=== PATIENT | female | born 1980 | race Caucasian/White ===

== ENCOUNTER 2022-09-12 22:05 | Inpatient (IN) | payer OTHER ==
[2022-09-12 22:31] VITALS: BMI 46.5
[2022-09-13] MEDS ORDERED: traMADol HCl 50 MG TAB PO PRN ×3 (00:44→16:15)
[2022-09-13] MEDS ORDERED: busPIRone HCl 15 MG TAB PO SCH (01:00)
[2022-09-13] MEDS ORDERED: traMADol HCl 50 MG TAB PO SCH (01:00)
[2022-09-13] MEDS ORDERED: Gabapentin 300 MG CAP PO SCH (01:00)
[2022-09-13] MEDS ORDERED: Levothyroxine 100 MCG SDV IVP SCH (01:30)
[2022-09-13] MEDS ORDERED: Dicyclomine 20 MG TAB PO SCH (01:30)
[2022-09-13] MEDS: Sodium Chloride 0.9% 1,000 ML IV SCH ×3 (01:30→21:00)
[2022-09-13] MEDS ORDERED: Methocarbamol 500 MG TAB PO SCH (01:30)
[2022-09-13] MEDS ORDERED: Levothyroxine Sodium 200 MCG VIAL IVP SCH (01:30)
[2022-09-13 04:41] LABS: #Eosinphils 0.2 10x3/uL (0.0-0.5); #Monocytes 0.6 10x3/uL (0.0-1.1); #Neutrophils 3.9 10x3/uL (1.5-8.4); %Basophils 0.3 % (0.0-2.0); %Eosinophils 2.4 % (0.0-6.0); %Lymphocytes 35.2 % (18.0-47.0); %Monocytes 7.9 % (0.0-10.0); %Neutrophils 53.8 % (40.0-75.0); Hemoglobin 10.2 g/dL (12.0-15.5); Mean Corpuscular HGB CONC 30.1 g/dL (32.0-36.0); Mean Corpuscular Hemoglobin 22.7 pg (27.0-33.0); Mean Corpuscular Volume 75.5 fl (81.6-98.3); Mean Platelet Volume 9.8 fl (7.4-10.4); Platelet Count 257 10x3/uL (150-450); RBC Distribution Width 15.6 % (11.5-14.5); Red Blood Cell (RBC) Count 4.49 10x6/uL (3.90-5.03); White Blood Cell (WBC) Count 7.2 10x3/uL (3.5-10.5)
[2022-09-13 04:58] LABS: Anion Gap 13 mmol/L (10-20); BUN (Urea Nitrogen) 8 mg/dL (7.0-18.7); Calc. Creatinine Clearance 180 mL/min (70-130); Calcium 8.6 mg/dL (7.8-10.44); Carbon Dioxide 24 mmol/L (22-29); Chloride 106 mmol/L (98-107); Estimated GFR 85; Glucose 104 mg/dL (70-105); Magnesium 2.1 mg/dL (1.6-2.6); Sodium 139 mmol/L (136-145)
[2022-09-13 05:12] LABS: Free T4 (Free Thyroxine) 1.26 ng/dL (0.70-1.48)
[2022-09-13] MEDS: Gabapentin 300 MG CAP PO SCH ×3 (06:51→21:16)
[2022-09-13] MEDS: Ferrous Sulfate 325 MG TAB PO SCH (07:56)
[2022-09-13] MEDS: Cyanocobalamin (Vitamin B-12) 1,000 MCG TAB PO SCH (07:56)
[2022-09-13] MEDS: Dicyclomine 20 MG TAB PO SCH ×3 (07:57→21:15)
[2022-09-13] MEDS: busPIRone HCl 15 MG TAB PO SCH ×3 (07:57→21:16)
[2022-09-13] MEDS: Methocarbamol 500 MG TAB PO SCH ×3 (07:58→21:25)
[2022-09-13] MEDS: Ondansetron ODT 4 MG TAB SL PRN ×2 (08:00→21:16)
[2022-09-13] MEDS ORDERED: TRAMADOL HCL 200 MG PO SCH (09:00)
[2022-09-13] MEDS ORDERED: Meclizine HCl 12.5 MG TAB PO PRN (12:31)
[2022-09-13] MEDS: traMADol HCl 50 MG TAB PO PRN (21:12)
[2022-09-14] MEDS ORDERED: HYDROcodone/Acetaminophen 5/325 mg Tablet PO SCH (00:30)
[2022-09-14] MEDS: Sodium Chloride 0.9% 1,000 ML IV SCH ×3 (04:44→18:12)
[2022-09-14 05:13] LABS: Free T4 (Free Thyroxine) 0.94 ng/dL (0.70-1.48)
[2022-09-14] MEDS: Gabapentin 300 MG CAP PO SCH ×3 (06:27→21:35)
[2022-09-14] MEDS: traMADol HCl 50 MG TAB PO PRN ×3 (06:41→18:09)
[2022-09-14] MEDS: busPIRone HCl 15 MG TAB PO SCH ×3 (08:03→21:35)
[2022-09-14] MEDS: Dicyclomine 20 MG TAB PO SCH ×3 (08:03→21:35)
[2022-09-14] MEDS: Methocarbamol 500 MG TAB PO SCH ×3 (08:03→21:36)
[2022-09-14] MEDS: Cyanocobalamin (Vitamin B-12) 1,000 MCG TAB PO SCH (08:04)
[2022-09-14] MEDS: Ferrous Sulfate 325 MG TAB PO SCH (08:04)
[2022-09-14] MEDS: Ondansetron ODT 4 MG TAB SL PRN (11:34)
[2022-09-15] MEDS: traMADol HCl 50 MG TAB PO PRN ×3 (00:50→12:48)
[2022-09-15] MEDS: Sodium Chloride 0.9% 1,000 ML IV SCH ×2 (02:13→09:28)
[2022-09-15] MEDS: Gabapentin 300 MG CAP PO SCH ×3 (06:44→21:02)
[2022-09-15] MEDS: Dicyclomine 20 MG TAB PO SCH ×3 (09:35→21:04)
[2022-09-15] MEDS: Ferrous Sulfate 325 MG TAB PO SCH (09:35)
[2022-09-15] MEDS: Cyanocobalamin (Vitamin B-12) 1,000 MCG TAB PO SCH (09:35)
[2022-09-15] MEDS: busPIRone HCl 15 MG TAB PO SCH ×3 (09:35→21:04)
[2022-09-15] MEDS: Methocarbamol 500 MG TAB PO SCH ×3 (09:36→21:02)
[2022-09-15] MEDS: HYDROcodone/Acetaminophen 5/325 mg Tablet PO PRN (21:03)
[2022-09-16] MEDS ORDERED: Levothyroxine Sodium 200 MCG VIAL IVP SCH (06:00)
[2022-09-16] MEDS ORDERED: Levothyroxine 100 MCG SDV IVP SCH (06:00)
[2022-09-16] MEDS: HYDROcodone/Acetaminophen 5/325 mg Tablet PO PRN ×3 (06:39→17:46)
[2022-09-16] MEDS: Gabapentin 300 MG CAP PO SCH ×3 (06:40→20:38)
[2022-09-16] MEDS: Ondansetron ODT 4 MG TAB SL PRN (06:49)
[2022-09-16] MEDS: Dicyclomine 20 MG TAB PO SCH ×3 (09:12→20:39)
[2022-09-16] MEDS: Methocarbamol 500 MG TAB PO SCH ×3 (09:12→20:38)
[2022-09-16] MEDS: busPIRone HCl 15 MG TAB PO SCH ×3 (09:15→20:38)
[2022-09-16] MEDS: Cyanocobalamin (Vitamin B-12) 1,000 MCG TAB PO SCH (09:15)
[2022-09-16] MEDS: Ferrous Sulfate 325 MG TAB PO SCH (09:15)
[2022-09-17] MEDS: HYDROcodone/Acetaminophen 5/325 mg Tablet PO PRN ×2 (00:10→05:32)
[2022-09-17] MEDS: Gabapentin 300 MG CAP PO SCH ×3 (05:20→20:22)
[2022-09-17 08:43] LABS: #Eosinphils 0.2 10x3/uL (0.0-0.5); #Monocytes 0.6 10x3/uL (0.0-1.1); #Neutrophils 3.5 10x3/uL (1.5-8.4); %Basophils 0.3 % (0.0-2.0); %Eosinophils 2.7 % (0.0-6.0); %Lymphocytes 35.1 % (18.0-47.0); %Monocytes 8.5 % (0.0-10.0); %Neutrophils 53.1 % (40.0-75.0); Hemoglobin 10.4 g/dL (12.0-15.5); Mean Corpuscular HGB CONC 30.1 g/dL (32.0-36.0); Mean Corpuscular Hemoglobin 22.6 pg (27.0-33.0); Mean Corpuscular Volume 75.2 fl (81.6-98.3); Mean Platelet Volume 10.1 fl (7.4-10.4); Platelet Count 235 10x3/uL (150-450); RBC Distribution Width 15.7 % (11.5-14.5); White Blood Cell (WBC) Count 6.6 10x3/uL (3.5-10.5)
[2022-09-17] MEDS: Lidocaine 4% Patch TD SCH (09:00)
[2022-09-17] MEDS: Methocarbamol 500 MG TAB PO SCH ×3 (09:00→20:21)
[2022-09-17] MEDS: Ferrous Sulfate 325 MG TAB PO SCH (09:01)
[2022-09-17] MEDS: HYDROcodone/Acetaminophen 10/325 mg Tablet PO PRN ×2 (09:01→18:08)
[2022-09-17] MEDS: Dicyclomine 20 MG TAB PO SCH ×3 (09:01→20:23)
[2022-09-17] MEDS: Cyanocobalamin (Vitamin B-12) 1,000 MCG TAB PO SCH (09:01)
[2022-09-17] MEDS: busPIRone HCl 15 MG TAB PO SCH ×3 (09:01→20:22)
[2022-09-17 09:21] LABS: ALT (SGPT) 22 U/L (8-55); AST (SGOT) 16 U/L (5-34); Albumin 3.4 g/dL (3.5-5.0); Alkaline Phosphatase 80 U/L (40-110); Anion Gap 13 mmol/L (10-20); BUN (Urea Nitrogen) 7 mg/dL (7.0-18.7); Bilirubin, Total 0.2 mg/dL (0.2-1.2); Calc. Creatinine Clearance 189 mL/min (70-130); Calcium 8.7 mg/dL (7.8-10.44); Carbon Dioxide 24 mmol/L (22-29); Chloride 109 mmol/L (98-107); Estimated GFR 89; Globulin 2.9 g/dL (2.4-3.5); Glucose 94 mg/dL (70-105); Magnesium 1.9 mg/dL (1.6-2.6); Protein, Total 6.3 g/dL (6.0-8.3); Sodium 142 mmol/L (136-145)
[2022-09-17 09:39] LABS: Free T4 (Free Thyroxine) 1.04 ng/dL (0.70-1.48); Thyroid Stimulating Hormone 4.411 uIU/mL (0.35-4.94)
[2022-09-17] MEDS: Transdermal Patch Removal TOP SCH (20:23)
[2022-09-18] MEDS: HYDROcodone/Acetaminophen 10/325 mg Tablet PO PRN ×4 (00:12→21:02)
[2022-09-18] MEDS: Gabapentin 300 MG CAP PO SCH ×3 (05:58→21:02)
[2022-09-18] MEDS ORDERED: Morphine 2 MG/ML VIAL SLOW IVP SCH (09:00)
[2022-09-18] MEDS: Lidocaine 4% Patch TD SCH (09:57)
[2022-09-18] MEDS: Dicyclomine 20 MG TAB PO SCH ×3 (09:57→21:00)
[2022-09-18] MEDS: Ferrous Sulfate 325 MG TAB PO SCH (09:57)
[2022-09-18] MEDS: busPIRone HCl 15 MG TAB PO SCH ×3 (10:08→21:03)
[2022-09-18] MEDS: Methocarbamol 500 MG TAB PO SCH ×3 (10:08→21:00)
[2022-09-18] MEDS: Cyanocobalamin (Vitamin B-12) 1,000 MCG TAB PO SCH (10:08)
[2022-09-18] MEDS: Transdermal Patch Removal TOP SCH (21:03)
[2022-09-19] MEDS: HYDROcodone/Acetaminophen 10/325 mg Tablet PO PRN ×5 (02:57→21:43)
[2022-09-19] MEDS: Gabapentin 300 MG CAP PO SCH ×3 (05:53→21:42)
[2022-09-19] MEDS: Methocarbamol 500 MG TAB PO SCH ×3 (10:25→21:43)
[2022-09-19] MEDS: Cyanocobalamin (Vitamin B-12) 1,000 MCG TAB PO SCH (10:25)
[2022-09-19] MEDS: Ferrous Sulfate 325 MG TAB PO SCH (10:25)
[2022-09-19] MEDS: busPIRone HCl 15 MG TAB PO SCH ×3 (10:25→21:41)
[2022-09-19] MEDS: Dicyclomine 20 MG TAB PO SCH ×3 (10:25→21:41)
[2022-09-19] MEDS: Lidocaine 4% Patch TD SCH (10:26)
[2022-09-19] MEDS: Transdermal Patch Removal TOP SCH (23:03)
[2022-09-20] MEDS: HYDROcodone/Acetaminophen 10/325 mg Tablet PO PRN ×5 (02:19→22:58)
[2022-09-20] MEDS: Gabapentin 300 MG CAP PO SCH ×3 (06:06→22:50)
[2022-09-20] MEDS: Lidocaine 4% Patch TD SCH (09:39)
[2022-09-20] MEDS: Ferrous Sulfate 325 MG TAB PO SCH (09:39)
[2022-09-20] MEDS: Cyanocobalamin (Vitamin B-12) 1,000 MCG TAB PO SCH (09:40)
[2022-09-20] MEDS: Dicyclomine 20 MG TAB PO SCH ×3 (09:40→22:51)
[2022-09-20] MEDS: busPIRone HCl 15 MG TAB PO SCH ×3 (09:40→22:51)
[2022-09-20] MEDS: Methocarbamol 500 MG TAB PO SCH ×3 (09:42→22:51)
[2022-09-20] MEDS: Transdermal Patch Removal TOP SCH (22:54)
[2022-09-21] MEDS: HYDROcodone/Acetaminophen 10/325 mg Tablet PO PRN ×5 (03:36→21:03)
[2022-09-21] MEDS: Gabapentin 300 MG CAP PO SCH ×3 (07:43→20:46)
[2022-09-21] MEDS: Methocarbamol 500 MG TAB PO SCH ×3 (08:48→20:47)
[2022-09-21] MEDS: Lidocaine 4% Patch TD SCH ×2 (08:51→09:04)
[2022-09-21] MEDS: Cyanocobalamin (Vitamin B-12) 1,000 MCG TAB PO SCH (08:52)
[2022-09-21] MEDS: Ferrous Sulfate 325 MG TAB PO SCH (08:53)
[2022-09-21] MEDS: Dicyclomine 20 MG TAB PO SCH ×3 (08:54→20:47)
[2022-09-21] MEDS: busPIRone HCl 15 MG TAB PO SCH ×3 (09:02→20:46)
[2022-09-21 09:48] LABS: ALT (SGPT) 16 U/L (8-55); AST (SGOT) 19 U/L (5-34); Albumin 3.4 g/dL (3.5-5.0); Alkaline Phosphatase 74 U/L (40-110); Anion Gap 13 mmol/L (10-20); BUN (Urea Nitrogen) 9 mg/dL (7.0-18.7); Bilirubin, Total 0.3 mg/dL (0.2-1.2); Calc. Creatinine Clearance 175 mL/min (70-130); Calcium 8.5 mg/dL (7.8-10.44); Carbon Dioxide 23 mmol/L (22-29); Chloride 109 mmol/L (98-107); Estimated GFR 81; Globulin 2.8 g/dL (2.4-3.5); Glucose 112 mg/dL (70-105); Magnesium 2.1 mg/dL (1.6-2.6); Potassium 4.1 mmol/L (3.5-5.1); Protein, Total 6.2 g/dL (6.0-8.3); Sodium 141 mmol/L (136-145)
[2022-09-21 09:58] LABS: #Eosinphils 0.2 10x3/uL (0.0-0.5); #Monocytes 0.3 10x3/uL (0.0-1.1); #Neutrophils 3.1 10x3/uL (1.5-8.4); %Basophils 0.2 % (0.0-2.0); %Eosinophils 2.5 % (0.0-6.0); %Lymphocytes 40.4 % (18.0-47.0); %Monocytes 5.5 % (0.0-10.0); %Neutrophils 51.2 % (40.0-75.0); Hemoglobin 10.6 g/dL (12.0-15.5); Mean Corpuscular HGB CONC 30.2 g/dL (32.0-36.0); Mean Corpuscular Hemoglobin 22.7 pg (27.0-33.0); Mean Corpuscular Volume 75.2 fl (81.6-98.3); Mean Platelet Volume 10.3 fl (7.4-10.4); Platelet Count 244 10x3/uL (150-450); RBC Distribution Width 16.5 % (11.5-14.5); Red Blood Cell (RBC) Count 4.67 10x6/uL (3.90-5.03)
[2022-09-21 10:05] LABS: Free T4 (Free Thyroxine) 0.68 ng/dL (0.70-1.48); Thyroid Stimulating Hormone 9.2486 uIU/mL (0.35-4.94)
[2022-09-21] MEDS ORDERED: Levothyroxine Sodium 200 MCG VIAL IVP SCH (12:30)
[2022-09-21] MEDS: Ondansetron PF 4 MG/2 ML Vial IVP PRN (20:49)
[2022-09-21] MEDS: Transdermal Patch Removal TOP SCH (21:04)
[2022-09-22] MEDS: HYDROcodone/Acetaminophen 10/325 mg Tablet PO PRN ×5 (01:00→21:32)
[2022-09-22] MEDS: Gabapentin 300 MG CAP PO SCH ×3 (07:32→21:20)
[2022-09-22] MEDS: Ferrous Sulfate 325 MG TAB PO SCH (08:39)
[2022-09-22] MEDS: Cyanocobalamin (Vitamin B-12) 1,000 MCG TAB PO SCH (08:39)
[2022-09-22] MEDS: Dicyclomine 20 MG TAB PO SCH ×3 (08:39→21:32)
[2022-09-22] MEDS: busPIRone HCl 15 MG TAB PO SCH ×3 (08:39→21:20)
[2022-09-22] MEDS: Methocarbamol 500 MG TAB PO SCH ×3 (08:40→21:32)
[2022-09-22] MEDS: Lidocaine 4% Patch TD SCH (08:42)
[2022-09-22] MEDS: Ondansetron PF 4 MG/2 ML Vial IVP PRN ×2 (15:05→21:21)
[2022-09-22] MEDS: Transdermal Patch Removal TOP SCH (21:21)
[2022-09-23] MEDS: HYDROcodone/Acetaminophen 10/325 mg Tablet PO PRN ×4 (03:23→22:04)
[2022-09-23] MEDS: Gabapentin 300 MG CAP PO SCH ×3 (05:48→22:05)
[2022-09-23] MEDS: Lidocaine 4% Patch TD SCH (09:00)
[2022-09-23] MEDS: Dicyclomine 20 MG TAB PO SCH ×3 (09:38→22:07)
[2022-09-23] MEDS: busPIRone HCl 15 MG TAB PO SCH ×3 (09:39→22:04)
[2022-09-23] MEDS: Methocarbamol 500 MG TAB PO SCH ×3 (09:39→22:06)
[2022-09-23] MEDS: Ferrous Sulfate 325 MG TAB PO SCH (09:39)
[2022-09-23] MEDS: Cyanocobalamin (Vitamin B-12) 1,000 MCG TAB PO SCH (09:39)
[2022-09-23] MEDS: Ondansetron ODT 4 MG TAB SL PRN (10:19)
[2022-09-23] MEDS: Ondansetron PF 4 MG/2 ML Vial IVP PRN (22:04)
[2022-09-23] MEDS: Transdermal Patch Removal TOP SCH (22:06)
[2022-09-24] MEDS: HYDROcodone/Acetaminophen 10/325 mg Tablet PO PRN ×4 (03:14→21:01)
[2022-09-24] MEDS: Gabapentin 300 MG CAP PO SCH ×3 (06:36→20:53)
[2022-09-24] MEDS: Ferrous Sulfate 325 MG TAB PO SCH (08:30)
[2022-09-24] MEDS: Methocarbamol 500 MG TAB PO SCH ×3 (08:30→20:54)
[2022-09-24] MEDS: Cyanocobalamin (Vitamin B-12) 1,000 MCG TAB PO SCH (08:31)
[2022-09-24] MEDS: Dicyclomine 20 MG TAB PO SCH ×3 (08:31→20:54)
[2022-09-24] MEDS: busPIRone HCl 15 MG TAB PO SCH ×3 (08:31→20:54)
[2022-09-24] MEDS: Lidocaine 4% Patch TD SCH (08:31)
[2022-09-24] MEDS: Ondansetron PF 4 MG/2 ML Vial IVP PRN (18:35)
[2022-09-24] MEDS ORDERED: Levothyroxine 100 MCG SDV IVP SCH (20:00)
[2022-09-24] MEDS: Transdermal Patch Removal TOP SCH (20:57)
[2022-09-25] MEDS: Ondansetron PF 4 MG/2 ML Vial IVP PRN ×2 (00:46→06:53)
[2022-09-25] MEDS: HYDROcodone/Acetaminophen 10/325 mg Tablet PO PRN ×3 (00:46→09:50)
[2022-09-25] MEDS ORDERED: Levothyroxine Sodium 200 MCG VIAL IVP SCH (06:00)
[2022-09-25] MEDS: Gabapentin 300 MG CAP PO SCH ×2 (06:52→12:04)
[2022-09-25] MEDS: Ferrous Sulfate 325 MG TAB PO SCH (09:50)
[2022-09-25] MEDS: Methocarbamol 500 MG TAB PO SCH (09:51)
[2022-09-25] MEDS: Dicyclomine 20 MG TAB PO SCH (09:51)
[2022-09-25] MEDS: Lidocaine 4% Patch TD SCH (09:51)
[2022-09-25] MEDS: Cyanocobalamin (Vitamin B-12) 1,000 MCG TAB PO SCH (09:55)
[2022-09-25] MEDS: busPIRone HCl 15 MG TAB PO SCH (09:55)
[2022-09-25 13:44] VITALS: BP 155/90; TEMP 98
== END 2022-09-25 13:45 | disposition home or self-care (01) | DRG 644 ==
LOC: INTOOBSV 22:05 → UNDOADMOB 22:05 → CSHTELE 22:05 → OBSVTOIN 09-16 08:40
PROVIDERS: ADMIT Family Medicine; ATTEND Internal Medicine
DX: E89.0 Postprocedural hypothyroidism (principal); E27.40 Unspecified adrenocortical insufficiency; Z68.42 Body mass index [BMI] 45.0-49.9, adult; I95.1 Orthostatic hypotension; E66.01 Morbid (severe) obesity due to excess calories; G89.29 Other chronic pain; M51.26 Other intervertebral disc displacement, lumbar region; R00.1 Bradycardia, unspecified; Z95.0 Presence of cardiac pacemaker; Z85.850 Personal history of malignant neoplasm of thyroid; Z79.890 Hormone replacement therapy; Z88.8 Allergy status to other drugs, medicaments and biological substances; Z88.1 Allergy status to other antibiotic agents; Z88.2 Allergy status to sulfonamides; Z79.899 Other long term (current) drug therapy; Z90.49 Acquired absence of other specified parts of digestive tract; D50.9 Iron deficiency anemia, unspecified
CPT/HCPCS: 36415; 72131; 80048; 80053; 82533; 83735; 84439; 84443; 84481; 85025; 93306; G0378; J1642; J1650; J2272; J2405; J7050; Q0162

== ENCOUNTER 2025-01-31 10:15 | Day surgery (SDC) | payer MEDICAID ==
[2025-01-29 10:23] VITALS: BMI 48.9
[2025-01-31] MEDS ORDERED: Lidocaine 1% PF 5 ML VIAL ONE (11:07)
[2025-01-31] MEDS ORDERED: PROPOFOL 20 ML ONE (11:07)
[2025-01-31] MEDS ORDERED: Rocuronium Bromide 10 MG/ML (10ML VIAL) ONE (11:07)
[2025-01-31] MEDS ORDERED: Bupivacaine/Epinephrine 0.25% 30 ML VIAL ONE (11:16)
[2025-01-31 11:26] LABS: #Basophils 0.03 10x3/uL (0.0-0.2); #Eosinophils 0.20 10x3/uL (0.0-0.5); #Monocytes 0.56 10x3/uL (0.0-1.1); #Neutrophils 5.56 10x3/uL (1.5-8.4); %Basophils 0.4 % (0.0-2.0); %Eosinophils 2.3 % (0.0-6.0); %Lymphocytes 25.1 % (18.0-47.0); %Monocytes 6.6 % (0.0-10.0); %Neutrophils 65.2 % (40.0-75.0); Hematocrit 36.4 % (34.9-44.5); Hemoglobin 11.1 g/dL (12.0-15.5); Mean Corpuscular Hemoglobin 23.1 pg (27.0-33.0); Mean Corpuscular Volume 75.7 fL (81.6-98.3); Platelet Count 271 10x3/uL (150-450); Red Blood Cell (RBC) Count 4.81 10x6/uL (3.90-5.03); White Blood Cell (WBC) Count 8.52 10x3/uL (3.5-10.5)
[2025-01-31] MEDS ORDERED: CEFAZOLIN 2 GM VIAL ONE (11:26)
[2025-01-31 12:01] LABS: Anion Gap 15 mmol/L (10-20); BUN (Urea Nitrogen) 11 mg/dL (7.0-18.7); Calc. Creatinine Clearance 186 mL/min (70-130); Calcium 9.1 mg/dL (7.8-10.44); Carbon Dioxide 22 mmol/L (22-29); Chloride 106 mmol/L (98-107); Glucose 116 mg/dL (70-105); Potassium 3.6 mmol/L (3.5-5.1); Sodium 139 mmol/L (136-145)
[2025-01-31] MEDS ORDERED: Ondansetron PF 4 MG/2 ML Vial ONE (12:27)
[2025-01-31] MEDS ORDERED: HYDROmorphone 0.5 MG/0.5 ML SYRINGE ONE (13:20)
[2025-01-31] MEDS ORDERED: HYDROcodone/Acetaminophen 5/325 mg Tablet ONE (13:48)
== END 2025-01-31 14:15 | disposition home or self-care (01) ==
LOC: CSHSDC 10:15
PROVIDERS: ATTEND Surgery
PROC: 0JHD0XZ Insertion of Tunneled Vascular Access Device into Right Upper Arm Subcutaneous Tissue and Fascia, Open Approach (ICD-10-PCS; principal; 2025-01-31)
DX: I87.2 Venous insufficiency (chronic) (peripheral) (principal); E03.8 Other specified hypothyroidism; Z88.2 Allergy status to sulfonamides; Z88.1 Allergy status to other antibiotic agents; Z91.048 Other nonmedicinal substance allergy status; Z79.890 Hormone replacement therapy; Z79.899 Other long term (current) drug therapy
CPT/HCPCS: 36415; 71045; 80048; 85025; C1788; J1171; J1642; J2250; J2405; J2704; J3010